=== PATIENT | female | born 1940 | race Caucasian/White ===

== ENCOUNTER 2017-05-20 11:05 | Emergency (ER) | payer MEDICARE, OTHER ==
[2017-05-20] MEDS ORDERED: Aluminum Hydroxide/Magnesium Hydroxide Susp 30 ML Cup PO STA (11:38)
--- NOTE | 2017-05-20 11:45 | EDM.PDOC ---
ED HPI GENERAL MEDICAL PROBLEM - General Chief Complaint: Gastrointestinal Problem Stated Complaint: ACID REFLEX Time Seen by Provider: 05/20/17 11:40 Source of Information: Reports: Patient, RN History Limitations: Reports: No Limitations - History of Present Illness INITIAL COMMENTS - FREE TEXT/NARRATIVE: Has been seen in the clinic recently for GERD. Has a follow up appt later today in the clinic for the same. Called the clinic this morning to report that the tx she is on is not working. Who ever she spoke with told her to go to the ER in case she is having a heart attack. Recently was taken off the PPI she had been on for yrs and was put on ranititine 150 mg bid. Is having breakthrough GERD sx's since. No other sx's reported that are consistent with angina. Onset: Other (GERD worse lately after stopping her PPI and starting Zantac) Duration: Day(s): Location: Reports: Chest Quality: Reports: Burning Severity: Moderate Improves with: Reports: Eating Worsens with: Reports: Other (uncertain, no antacids tried. Some relief with peppermint candy.) Context: Reports: Other (Recent stoppage of PPI) Associated Symptoms: Reports: Other (heart burn). 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: Other (see below) (Ranitidine) - Related Data Allergies Allergy/AdvReac Type Severity Reaction Status Date / Time morphine Allergy Nausea and Verified 05/20/17 11:42 Vomiting nitrofurantoin Allergy Cannot Verified 05/20/17 11:42 [From Macrobid] Remember Uxcruwp-Tnf-Dka Reductase Allergy Cannot Verified 05/20/17 11:42 Inhibitor Remember Home Meds: Home Meds Acetaminophen [Tylenol] 650 mg PO BEDTIME 05/20/17 [History] Aspirin [Adult Low Dose Aspirin EC] 81 mg PO DAILY 05/20/17 [History] Emollient Base [Emollient] 1 applic TP DAILY PRN 05/20/17 [History] Insulin Glarg,Human.Rec.Analog [LantUS Solostar] 16 unit SQ BEDTIME 05/20/17 [ History] Lisinopril [Prinivil] 20 mg PO DAILY 05/20/17 [History] Multivitamin [Multiple Vitamins] 1 each PO DAILY 05/20/17 [History] [place]-3/DHA/Epa/Fish Oil [[place] 3 500 Softgel] 1,000 each PO DAILY 05/20/17 [ History] Omeprazole 20 mg PO DAILY 05/20/17 [History] Ranitidine HCl 150 mg PO DAILY 05/20/17 [History] SitaGLIPtin [Januvia] 50 mg PO DAILY 05/20/17 [History] glipiZIDE [Glucotrol] 10 mg PO DAILY 05/20/17 [History] metFORMIN HCl [Glucophage] 1,000 mg PO BID 05/20/17 [History] ED ROS GENERAL - Review of Systems Review Of Systems: See Below Constitutional: Reports: No Symptoms HEENT: Reports: No Symptoms Respiratory: Reports: No Symptoms GI/Abdominal: Reports: Other (heart burn). Denies: Abdominal Pain, Anorexia, Black Stool, Bloody Stool, Constipation, Diarrhea, Decreased Appetite, Distension, Hematemesis, Hematochezia, Nausea, Stool Incontinence, Vomiting : Reports: No Symptoms Musculoskeletal: Reports: No Symptoms Skin: Reports: No Symptoms Neurological: Reports: No Symptoms ED EXAM, GI/ABD - Physical Exam Exam: See Below Exam Limited By: No Limitations General Appearance: Alert, WD/WN, No Apparent Distress, Obese Eyes: Bilateral: Normal Appearance Ears: Normal External Exam, Normal Canal, Hearing Grossly Normal, Normal TMs Nose: Normal Inspection, Normal Mucosa, No Blood Throat/Mouth: Normal Inspection, Normal Lips, Normal Teeth, Normal Oropharynx, Normal Voice, No Airway Compromise Head: Atraumatic, Normocephalic Neck: Normal Inspection, Supple, Non-Tender Respiratory/Chest: No Respiratory Distress, Lungs Clear, Normal Breath Sounds, No Accessory Muscle Use Cardiovascular: Regular Rate, Rhythm, No Edema GI/Abdominal Exam: Normal Bowel Sounds, Soft, Non-Tender, No Distention Neurological: Alert, Oriented, CN II-XII Intact, Normal Cognition Psychiatric: Normal Affect, Normal Mood Skin Exam: Warm, Dry, Intact, Normal Color, No Rash Lymphatic: No Adenopathy EKG INTERPRETATION EKG Date: 05/20/17 Time: 11:50 Rhythm: NSR Rate (Beats/Min): 88 [place]: Normal P-Wave: Present QRS: Normal ST-T: Normal QT: Normal Comparison: NA - No Prior EKG Course - Orders/Labs/Meds Orders: Active Orders 24 hr Category Date Time Status EKG Documentation Completion [RC] ASDIRECTED Care 05/20/17 11:39 Ordered EKG 12 Lead [EK] Routine Ther 05/20/17 11:39 Ordered Meds: Medications Discontinued Medications Generic Name Dose Route Start Last Admin Trade Name Dimitri PRN Reason Stop Dose Admin Al Hydroxide/Mg Hydroxide 30 ml 05/20/17 11:38 Mag-Al Susp PO 05/20/17 11:39 NOW STA Departure - Departure Time of Disposition: 12:10 Disposition: Home, Self-Care 01 Condition: Good Clinical Impression: GERD without esophagitis - Discharge Information Referrals: Caryl Acosta SUPERVISOR EVAPORATOR [Primary Care Provider] - Forms: ED Department Discharge - My Orders Last 24 Hours: My Active Orders 05/20/17 11:39 EKG Documentation Completion [RC] ASDIRECTED EKG 12 Lead [EK] Routine - Assessment/Plan Last 24 Hours: My Active Orders 05/20/17 11:39 EKG Documentation Completion [RC] ASDIRECTED EKG 12 Lead [EK] Routine
[2017-05-20 13:51] VITALS: BP 131/94
== END 2017-05-20 12:25 | disposition home or self-care (01) ==
LOC: FB.ED 11:05
DX: K21.9 Gastro-esophageal reflux disease without esophagitis (principal); Z79.82 Long term (current) use of aspirin; Z79.899 Other long term (current) drug therapy; Z88.8 Allergy status to other drugs, medicaments and biological substances; Z88.5 Allergy status to narcotic agent
CPT/HCPCS: 93005; 99284; A9270

== ENCOUNTER 2021-01-17 09:26 | Emergency (ER) | payer MEDICARE, OTHER ==
[2021-01-17] MEDS ORDERED: traMADol 50 MG Tab PO STA (10:06)
[2021-01-17] MEDS ORDERED: Ketorolac 30 MG/ML SDV IM STA (10:06)
[2021-01-17] MEDS ORDERED: Acetaminophen 500 MG Tab PO STA (10:06)
--- NOTE | 2021-01-17 12:26 | EDM.PDOC ---
ED HPI GENERAL MEDICAL PROBLEM - General Chief Complaint: Lower Extremity Injury/Pain Stated Complaint: LEG PAIN Time Seen by Provider: 01/17/21 09:30 Source of Information: Reports: Patient History Limitations: Reports: No Limitations - History of Present Illness INITIAL COMMENTS - FREE TEXT/NARRATIVE: Patient is an 80 YO WF who presented to the ED because of a left hip pain. She apparently was talking to her phone while she was in her kitchen then she tripped and fell and landed on her left side. She c/o left shoulder/elbow/wrist pain. She also c/o 10/10 Left hip and left mid femoral pain. She was not able to ambulate after the fall. - Related Data Allergies Allergy/AdvReac Type Severity Reaction Status Date / Time morphine Allergy Nausea and Verified 05/20/17 11:42 Vomiting nitrofurantoin Allergy Cannot Verified 05/20/17 11:42 [From Macrobid] Remember Ezykcfs-Qgj-Xvz Reductase Allergy Cannot Verified 05/20/17 11:42 Inhibitor Remember Home Meds: Home Meds Acetaminophen [Tylenol] 650 mg PO BEDTIME 05/20/17 [History] Aspirin [Adult Low Dose Aspirin EC] 81 mg PO DAILY 05/20/17 [History] Emollient Base [Emollient] 1 applic TP DAILY PRN 05/20/17 [History] Insulin Glarg,Human.Rec.Analog [LantUS Solostar] 16 unit SQ BEDTIME 05/20/17 [History] Lisinopril [Prinivil] 20 mg PO DAILY 05/20/17 [History] Multivitamin [Multiple Vitamins] 1 each PO DAILY 05/20/17 [History] [place]-3/DHA/Epa/Fish Oil [[place] 3 500 Softgel] 1,000 each PO DAILY 05/20/17 [History] Ranitidine HCl 150 mg PO DAILY 05/20/17 [History] SitaGLIPtin [Januvia] 50 mg PO DAILY 05/20/17 [History] glipiZIDE [Glucotrol] 10 mg PO DAILY 05/20/17 [History] metFORMIN HCl [Glucophage] 1,000 mg PO BID 05/20/17 [History] Magnesium Oxide [Magnesium Oxide 400] 240 mg PO TID #15 powd.pack 09/01/19 [Rx] Past Medical History HEENT History: Reports: Hard of Hearing Cardiovascular History: Reports: Hypertension Respiratory History: Reports: None Gastrointestinal History: Reports: GERD Genitourinary History: Reports: Urinary Incontinence 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: Musculoskeletal History: Reports: Arthritis Neurological History: Reports: None Psychiatric History: Reports: None Endocrine/Metabolic History: Reports: Diabetes, Type II Hematologic History: Reports: Anticoagulation Therapy Other Hematologic History: PT TAKES LOW DOSE ASA DAILY Immunologic History: Reports: None Oncologic (Cancer) History: Reports: Uterine Dermatologic History: Reports: Eczema - Infectious Disease History Infectious Disease History: Reports: Chicken Pox, Measles, Mumps - Past Surgical History Head Surgeries/Procedures: Reports: None HEENT Surgical History: Reports: LASIK GI Surgical History: Reports: Appendectomy, Colonoscopy Female Surgical History: Reports: Hysterectomy Musculoskeletal Surgical History: Reports: Hip Replacement, Knee Replacement Social & Family History - Family History Cardiac: Reports: None Respiratory: Reports: None - Caffeine Use Caffeine Use: Reports: Coffee Review of Systems - Review of Systems Review Of Systems: See Below Constitutional: Reports: No Symptoms Eyes: Reports: No Symptoms Ears: Reports: No Symptoms Nose: Reports: No Symptoms Mouth/Throat: Reports: No Symptoms Respiratory: Reports: No Symptoms Cardiovascular: Reports: No Symptoms GI/Abdominal: Reports: No Symptoms Genitourinary: Reports: No Symptoms Musculoskeletal: Reports: Shoulder Pain, Other (Left elbow/wist/hip/thigh pain) Skin: Reports: No Symptoms ED EXAM, GENERAL - Physical Exam Exam: See Below Exam Limited By: No Limitations General Appearance: Alert, No Apparent Distress Ears: Normal External Exam, Normal Canal Nose: Normal Inspection, Normal Mucosa Throat/Mouth: Normal Inspection, Normal Lips Head: Atraumatic, Normocephalic Neck: Normal Inspection, Supple, Non-Tender, Full Range of Motion Respiratory/Chest: No Respiratory Distress, Lungs Clear, Normal Breath Sounds Cardiovascular: Normal Peripheral Pulses, Regular Rate, Rhythm, No Edema, No Gallop GI/Abdominal: Normal Bowel Sounds, Soft, Non-Tender, No Organomegaly Back Exam: Normal Inspection, Full Range of Motion Extremities: Normal Inspection, Other (tenderness left hip and mid thigh) Neurological: Alert, Oriented, CN II-XII Intact Psychiatric: Normal Affect, Normal Mood Course - Vital Signs Text/Narrative:: Lab and xray rest was reviewed and discussed with patient and her daughter ToradoL 30 mg IM x1 Tramadol 30 mg PO x1 Tylenol 1000 mg PO x1 Code Status:Full Code Case was discussed with Dr Boyle(ortho) and DR Pedroza Last Recorded V/S: Last Vital Signs Temp 36.6 C 01/17/21 09:27 Pulse 84 01/17/21 09:27 Resp 20 01/17/21 09:27 BP 153/80 H 01/17/21 09:27 Pulse Ox 97 01/17/21 09:27 - Orders/Labs/Meds Orders: Active Orders 24 hr Category Date Time Status Femur Min 2V Lt [CR] Stat Exams 01/17/21 10:09 Taken Hip Min 2V or 3V w Pelvis Lt [CR] Stat Exams 01/17/21 10:06 Taken Wrist Comp Min 3V Lt [CR] Stat Exams 01/17/21 10:06 Taken CBC WITH AUTO DIFF [HEME] Stat Lab 01/17/21 12:45 Received COMPREHENSIVE METABOLIC PN,CMP [CHEM] Stat Lab 01/17/21 12:45 Received CORONAVIRUS COVID-19 [place] [MOLEC] Stat Lab 01/17/21 12:46 Received INR,PT,PROTHROMBIN TIME [COAG] Stat Lab 01/17/21 12:45 Received PTT,PARTIAL THROMBOPLSTIN TIME [COAG] Stat Lab 01/17/21 12:45 Received Sodium Chloride 0.9% [Saline Flush] Med 01/17/21 12:30 Active 10 ml FLUSH ASDIRECTED PRN Saline Lock Insert [OM.PC] Routine Oth 01/17/21 12:30 Ordered Medication Orders Sodium Chloride (Sodium Chloride 0.9% 10 Ml Syringe) 10 ml FLUSH ASDIRECTED PRN PRN Reason: Keep Vein Open Meds: Medications Generic Name Dose Route Start Last Admin Trade Name Freq PRN Reason Stop Dose Admin Sodium Chloride 10 ml 01/17/21 12:30 Sodium Chloride 0.9% 10 Ml Syringe FLUSH ASDIRECTED PRN Keep Vein Open Discontinued Medications Generic Name Dose Route Start Last Admin Trade Name Freq PRN Reason Stop Dose Admin Acetaminophen 1,000 mg 01/17/21 10:06 01/17/21 10:31 Acetaminophen 500 Mg Tab PO 01/17/21 10:07 1,000 mg NOW STA Administration Ketorolac Tromethamine 30 mg 01/17/21 10:06 01/17/21 10:32 Ketorolac 30 Mg/Ml Sdv IM 01/17/21 10:07 30 mg NOW STA Administration Tramadol HCl 100 mg 01/17/21 10:06 01/17/21 10:31 Tramadol 50 Mg Tab PO 01/17/21 10:07 100 mg NOW STA Administration Departure - Departure Time of Disposition: 13:00 Disposition: DC/Tfer to Acute Hospital 02 Condition: Good Clinical Impression: Hip fracture, Contusion, Fall - Discharge Information Referrals: Flor Mccormick NP [Primary Care Provider] - Forms: ED Department Discharge Sepsis Event Note (ED) - Evaluation Sepsis Screening Result: No Definite Risk - Focused Exam Vital Signs: Vital Signs Temp Pulse Resp BP Pulse Ox 01/17/21 09:27 36.6 C 84 20 153/80 H 97 - My Orders Last 24 Hours: My Active Orders 01/17/21 10:06 Hip Min 2V or 3V w Pelvis Lt [CR] Stat Wrist Comp Min 3V Lt [CR] Stat 01/17/21 10:09 Femur Min 2V Lt [CR] Stat 01/17/21 12:30 Sodium Chloride 0.9% [Saline Flush] 10 ml FLUSH ASDIRECTED PRN Saline Lock Insert [OM.PC] Routine 01/17/21 12:45 CBC WITH AUTO DIFF [HEME] Stat COMPREHENSIVE METABOLIC PN,CMP [CHEM] Stat INR,PT,PROTHROMBIN TIME [COAG] Stat PTT,PARTIAL THROMBOPLSTIN TIME [COAG] Stat 01/17/21 12:46 CORONAVIRUS COVID-19 [place] [MOLEC] Stat - Assessment/Plan Last 24 Hours: My Active Orders 01/17/21 10:06 Hip Min 2V or 3V w Pelvis Lt [CR] Stat Wrist Comp Min 3V Lt [CR] Stat 01/17/21 10:09 Femur Min 2V Lt [CR] Stat 01/17/21 12:30 Sodium Chloride 0.9% [Saline Flush] 10 ml FLUSH ASDIRECTED PRN Saline Lock Insert [OM.PC] Routine 01/17/21 12:45 CBC WITH AUTO DIFF [HEME] Stat COMPREHENSIVE METABOLIC PN,CMP [CHEM] Stat INR,PT,PROTHROMBIN TIME [COAG] Stat PTT,PARTIAL THROMBOPLSTIN TIME [COAG] Stat 01/17/21 12:46 CORONAVIRUS COVID-19 [place] [MOLEC] Stat
[2021-01-17] MEDS ORDERED: Sodium Chloride 0.9% 10 ML Syringe FLUSH PRN (12:30)
[2021-01-17 14:55] VITALS: BP 131/70; PULSE 100
== END 2021-01-17 15:00 ==
LOC: FB.ED 09:26
DX: T84.011A Broken internal left hip prosthesis, initial encounter (principal); I10 Essential (primary) hypertension; E11.9 Type 2 diabetes mellitus without complications; Z79.84 Long term (current) use of oral hypoglycemic drugs; Z79.899 Other long term (current) drug therapy; Z88.6 Allergy status to analgesic agent; Z88.1 Allergy status to other antibiotic agents; Z88.8 Allergy status to other drugs, medicaments and biological substances; Z20.822 Contact with and (suspected) exposure to COVID-19; W01.0XXA Fall on same level from slipping, tripping and stumbling without subsequent striking against object, initial encounter; Z79.01 Long term (current) use of anticoagulants
CPT/HCPCS: 36415; 73110-LT; 73502-LT; 73552-LT; 80053; 85025; 85610; 85730; 96372; 99284; 99285-25; A9270-GY; J1885; U0002